=== PATIENT | female | born 1955 | race Caucasian/White ===

== ENCOUNTER 2019-11-18 16:00 | Emergency (ER) | payer BC ==
[~2019-11-18] VITALS: Ht 157.5 cm; Wt 69.8 kg
[2019-11-18] MEDS ORDERED: LANTUS SOL100 UNIT/1 SUBQ (16:38)
[2019-11-18] MEDS ORDERED: FENOFIBRATE160 MG PO (16:38)
[2019-11-18] MEDS ORDERED: WARFARIN SODIUM4 MG PO (16:38)
[2019-11-18] MEDS ORDERED: OMEGA-3 ACID ETH1 GM PO (16:38)
[2019-11-18] MEDS ORDERED: LIPITOR 40 MG T40 M1 PO (16:39)
[2019-11-18] MEDS ORDERED: RAMIPRIL10 MG PO (16:39)
[2019-11-18] MEDS ORDERED: NEURONTIN 300300 M1 PO (16:39)
[2019-11-18] MEDS ORDERED: OMEPRAZOLE 20 M20 M1 PO (16:39)
[2019-11-18] MEDS ORDERED: NOVOLOG FL100 UNIT/M SUBQ (16:39)
[2019-11-18] MEDS ORDERED: METOCLOPRAMIDE10 MG PO (16:39)
[2019-11-18 16:40] LABS: HEMATOCRIT 38.9 % (37.0-47.0); HEMOGLOBIN 12.7 gm/dL (12.0-15.0); MCH 27.6 pg (26.0-34.0); MCHC 32.7 g/dL (28.0-37.0); MCV 84.3 fL (80.0-100.0); RBC 4.61 mil/uL (4.20-5.00); RDW 14.1 % (10.5-14.5); WBC 8.8 thou/uL (4.0-11.0)
[2019-11-18] MEDS ORDERED: ONE TOUCH ULTR1 EACH (16:40)
[2019-11-18 16:49] LABS: CALCIUM 9.5 mg/dL (8.5-10.1); CREATININE 2.2 mg/dL (0.6-1.0); POTASSIUM 5.3 mmol/L (3.5-5.1)
[2019-11-18 16:55] LABS: ALBUMIN 3.2 g/dL (3.4-5.0); APTT 28.1 Seconds (24.5-32.8); INR 1.4; PROTIME 13.9 Seconds (9.3-11.4); TOTAL BILIRUBIN 0.3 mg/dL (<0.1-1.0); TOTAL PROTEIN 7.2 g/dL (6.4-8.2)
[2019-11-18] MEDS ORDERED: ANUSOL-HC25 MG RECTAL (18:21)
[2019-11-18 18:28] VITALS: BP 150/62
== END 2019-11-18 18:33 | disposition home or self-care (01) ==
LOC: ER 16:00
PROVIDERS: Emergency Medicine
DX: K64.4 Residual hemorrhoidal skin tags (principal); E11.9 Type 2 diabetes mellitus without complications; Z79.01 Long term (current) use of anticoagulants; Z98.890 Other specified postprocedural states; Z88.6 Allergy status to analgesic agent; Z88.0 Allergy status to penicillin